=== PATIENT | female | born 1980 | race Native Hawaiian/Other Pacific Islander ===

== ENCOUNTER 2018-07-27 10:45 | Emergency (ER) | payer OTHER ==
[~2018-07-27] VITALS: Ht 165.1 cm; Wt 59.0 kg
--- NOTE | 2018-07-27 10:58 | NUR ---
BG MACK AT BEDSIDE FOR MSE.
[2018-07-27] MEDS ORDERED: FLUORESCEIN SODIUM 1 MG STRIP OP ONE (11:00)
[2018-07-27] MEDS ORDERED: TETRACAINE HCL 0.5% OPHT DROP 2 ML BOTTLE OP ONE (11:00)
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
[2018-07-27] MEDS ORDERED: FLUORESCEIN SODIUM 1 MG STRIP ONE (11:02)
[2018-07-27] MEDS ORDERED: TETRACAINE HCL 0.5% OPHT DROP 2 ML BOTTLE ONE (11:02)
--- NOTE | 2018-07-27 11:10 | NUR ---
PT TAKEN TO RADIOLOGY FOR CT SCAN.
--- NOTE | 2018-07-27 11:21 | NUR ---
PT BACK IN ER FROM RADIOLOGY.
--- NOTE | 2018-07-27 11:48 | NUR ---
Patient discharged to home in stable conditon. Written and verbal after care instructions given. Patient verbalizes understanding of instructions. ALL BELONGINGS W/ PT. PT SELF-AMBULATED W/O DIFFICULTY.
[2018-07-27 11:49] VITALS: BP 131/85
== END 2018-07-27 11:50 | disposition home or self-care (01) ==
LOC: ER 10:45
DX: S00.11XA Contusion of right eyelid and periocular area, initial encounter (principal); S00.211A Abrasion of right eyelid and periocular area, initial encounter; Z88.2 Allergy status to sulfonamides; W21.07XA Struck by softball, initial encounter; Y93.89 Activity, other specified; Y92.89 Other specified places as the place of occurrence of the external cause; Y99.8 Other external cause status
CPT/HCPCS: 70480; A4663